=== PATIENT | male | born 2000 | race Caucasian/White ===

== ENCOUNTER 2025-03-27 10:35 | Emergency (ER) | payer OTHER ==
[~2025-03-27] VITALS: Ht 182.9 cm; Wt 89.9 kg
[2025-03-27] MEDS ORDERED: ACET500P3 PO (10:50)
[2025-03-27 12:25] LABS: MONO SCRN NEGATIVE (NEGATIVE)
[2025-03-27 12:39] LABS: HIV 1&2 SCREEN NEGATIVE (NEGATIVE)
[2025-03-27 12:48] LABS: Trichomonas vaginalis (AMP) NOT DETECTED (NEGATIVE)
[2025-03-27 12:58] LABS: HEPATITIS B SURFACE ANTIBODY POSITIVE (POSITIVE); HEPATITIS C VIRUS ABY INDEX < 0.02 INDEX (<0.8)
[2025-03-27] MEDS ORDERED: AMOX500C PO (13:07)
[2025-03-27 13:12] LABS: GC DNA AMPLIFICATION NEGATIVE (NEGATIVE)
[2025-03-27 13:13] VITALS: BP 136/97; TEMP 98.3; O2SAT 98
[2025-03-27] MEDS: IBUPROFEN 600 MG TAB PO ONE (13:19)
[2025-03-27] MEDS: MUPIROCIN 2% OINT 22 GM TUBE TOP ONE (13:19)
[2025-03-27] MEDS: AMOXICILLIN 500 MG CAP PO ONE (13:19)
== END 2025-03-27 13:24 | disposition home or self-care (01) ==
LOC: M ED 10:35
DX: J02.9 Acute pharyngitis, unspecified (principal); L01.00 Impetigo, unspecified; Z91.030 Bee allergy status; Z79.1 Long term (current) use of non-steroidal anti-inflammatories (NSAID); Z79.2 Long term (current) use of antibiotics